=== PATIENT | female | born 1950 | race Caucasian/White ===

== ENCOUNTER → 2020-08-13 | Outpatient (CLI) | payer MEDICARE, OTHER | LOC: MRI 08:54 | DX: M51.36 Other intervertebral disc degeneration, lumbar region (principal); M48.061 Spinal stenosis, lumbar region without neurogenic claudication | CPT/HCPCS: 36415; 72100; 72158; 82565 ==

== ENCOUNTER → 2020-08-18 | Outpatient (CLI) | payer MEDICARE | LOC: MRI 13:38 | DX: Z00.00 Encounter for general adult medical examination without abnormal findings (principal); R25.1 Tremor, unspecified | CPT/HCPCS: 70553; A9577 ==

== ENCOUNTER → 2020-08-20 | Outpatient (CLI) | payer MEDICARE ==
[2020-08-21 08:14] LABS: RHEUMATOID ARTHRITIS FACTOR 43.6 IU/mL (0.0-13.9)
== END ==
LOC: LAB 09:29
PROVIDERS: Nurse Practitioner Family
DX: M25.50 Pain in unspecified joint (principal); M79.10 Myalgia, unspecified site; L65.9 Nonscarring hair loss, unspecified; D64.9 Anemia, unspecified
CPT/HCPCS: 36415; 82550; 82607; 82728; 82746; 83520; 84439; 84443; 85652; 86140; 86200; 86431

== ENCOUNTER 2020-09-29 19:25 | Emergency (ER) | payer MEDICARE ==
[2020-09-29 20:46] LABS: HEMOGLOBIN 13.2 gm/dl (12.3-15.3); RED BLOOD COUNT 4.16 M/UL (4.00-5.10); WHITE BLOOD COUNT 5.9 K/UL (4.5-11.0)
[2020-09-29 21:18] LABS: BUN/CREATININE RATIO 11 (0-10)
[2020-09-29] MEDS ORDERED: ZOFRAN ODT 4 MG4 MG PO (22:55)
[2020-09-29] MEDS ORDERED: TESSALON PERLE100 MG PO (22:55)
== END 2020-09-29 23:10 | disposition home or self-care (01) ==
LOC: ER1 19:25
PROVIDERS: Physician Assistant
DX: E87.1 Hypo-osmolality and hyponatremia (principal); R05 Cough; R52 Pain, unspecified; Z20.822 Contact with and (suspected) exposure to COVID-19
CPT/HCPCS: 0240U; 70450; 71045; 80053; 81001; 82550; 82553; 83874; 84484; 85025; 93005; 96374; 99284; J2405

== ENCOUNTER → 2020-10-16 | Outpatient (CLI) | payer MEDICARE ==
[~2020-10-16] MED LIST: TESSALON PERLE100 MG PO; ZOFRAN ODT 4 MG4 MG PO
[2020-10-16 16:25] LABS: BUN/CREATININE RATIO 11 (0-10)
== END ==
LOC: LAB 14:40
PROVIDERS: Internal Medicine Nephrology
DX: E87.1 Hypo-osmolality and hyponatremia (principal)
CPT/HCPCS: 80048

== ENCOUNTER → 2020-11-02 | Outpatient (CLI) | payer MEDICARE | LOC: MRI 12:37 | DX: M51.36 Other intervertebral disc degeneration, lumbar region (principal); J18.9 Pneumonia, unspecified organism | CPT/HCPCS: 71046; 72158; A9577 ==

== ENCOUNTER → 2021-01-06 | Outpatient (CLI) | payer MEDICARE | LOC: EXRD 13:29 | DX: M25.562 Pain in left knee (principal); M25.561 Pain in right knee | CPT/HCPCS: 73564 ==

== ENCOUNTER → 2021-02-02 | Outpatient (CLI) | payer MEDICARE | LOC: KOH-I 14:40 | DX: M47.812 Spondylosis without myelopathy or radiculopathy, cervical region (principal); R60.0 Localized edema; R29.6 Repeated falls; I65.23 Occlusion and stenosis of bilateral carotid arteries | CPT/HCPCS: 72125; 93880 ==